=== PATIENT | female | born 1990 | race Caucasian/White ===

== ENCOUNTER 2017-06-28 10:35 | Emergency (ER) | payer OTHER ==
[~2017-06-28] VITALS: Ht 157.5 cm; Wt 65.0 kg
[~2017-06-28 10:35] MED LIST: OXYC1SOL5 PO; PREN0.01 PO
[2017-06-28 10:38] VITALS: BP 130/77; PULSE 82; RESP 14; TEMP 98.3; O2SAT 97
--- NOTE | 2017-06-28 11:26 | PD ---
HPI Chief Complaint: Pain: Acute or Chronic Time Seen by Provider: 11:01 Travel History International Travel<30 days: No Contact w/Intl Traveler<30days: No Traveled to known affect area: No History of Present Illness HPI 27-year-old female presents emergency Department with complaint of right calf pain since Saturday. Pain is worse with walking. Pain is decreased at rest. Says her calf is low bit more swollen than her other calf. Describes pain as a tightness. Denies history of DVT, PE. Denies fever, vomiting. Denies paresthesias, loss of sensation, decreased range of motion, decreased strength to the affected extremity. Denies chest pain, shortness of breath. Denies anticoagulant therapy. Symptoms are mild in severity. Has not taken any medication or tried any treatments to alleviate her symptoms. Has no other medical complaints. No known allergies. No other modifying factors or associated signs and symptoms. PFSH Past Medical History ?: Not LMP: 1013/17 Social History Alcohol Use: Yes (OCC) Tobacco Use: No Substance Use: No Allergies-Medications (Allergen,Severity, Reaction): Coded Allergies: No Known Allergies (Unverified , 07/04/16) Reported Meds & Prescriptions Reported Meds & Active Scripts Active Ibuprofen 800 Mg Tab 800 Mg PO Q6HR PRN Oxycodone/Acetaminophen 5-325 mg/5Ml (Oxycodone W/ Acetaminophen) 5 mg/325 mg Tab 2 Tab PO Q4H PRN Reported Vit ( Plus) (Prenat Multivit/[place]/Iron/Folic Ac) Tab 1 Tab PO DAILY Review of Systems Except as stated in HPI: all other systems reviewed are Neg Physical Exam Narrative GENERAL: Well-nourished, well-developed female patient, in no acute distress SKIN: Warm and dry. HEAD: Atraumatic. Normocephalic. EYES: Pupils equal and round. No scleral icterus. No injection or drainage. ENT: Mucosa pink and moist. Airway patent. NECK: Trachea midline. CARDIOVASCULAR: Regular rate. RESPIRATORY: No accessory muscle use. GASTROINTESTINAL: Flat. MUSCULOSKELETAL: Right lower extremity supple and non-tense with 2+ pedal pulse and sensory intact without erythema; right calf with minimal swelling compared to the left. Reproducible tenderness on palpation to the right posterior upper calf. No obvious deformities. No clubbing. No cyanosis. NEUROLOGICAL: Awake and alert. Oriented 3. No obvious cranial nerve deficits. Motor grossly within normal limits. Normal speech. PSYCHIATRIC: Appropriate mood and affect; insight and judgment normal. Data Data Last Documented VS Vital Signs Date Time Temp Pulse Resp B/P (MAP) Pulse Ox O2 Delivery O2 Flow Rate FiO2 06/28/17 10:38 98.3 82 14 130/77 (94) 97 Orders Orders Us Leg Venous Doppler (06/28/17 ) Ed Discharge Order (06/28/17 12:48) [facility] Medical Decision Making Medical Screen Exam Complete: Yes Emergency Medical Condition: Yes Medical Record Reviewed: Yes Differential Diagnosis DVT, superficial thrombosis, leg pain Narrative Course 27-year-old female with right calf pain since Saturday. Denies history of DVT/ PE. Denies anticoagulant therapy. Right lower extremity supple and non-tense with 2+ pedal pulse and sensory intact and without erythema. Minimal edema noted compared to the left calf. I have asked the patient pain medication and she declined. Right leg venous Doppler ultrasound ordered. 1239: Right leg US concludes: Negative for DVT. Elongated 2.8 cm cystic-like structure proximal medial right calf indeterminate significance. Could represent a small fluid collection or hematoma. Patient provided copy of ultrasound report. Ibuprofen prescribed for home. Discussed reasons to return to the emergency department. Instructed patient to follow up with primary care provider. Patient verbalizes understanding and agreement with treatment plan. Patient is medically cleared and stable for discharge. Discussed reasons to return to the emergency department. Patient agrees with treatment plan. The patients vital signs are stable and the patient is stable for outpatient follow- up and treatment. Patient discharged home, stable and in no acute distress. Diagnosis Primary Impression: Cyst of soft tissue Referrals: Primary Care Physician Patient Instructions: Cyst (ED), General Instructions Departure Forms: Tests/Procedures, Work Release Enter return to work date: Jun 28, 2017 Additional Instructions: Ibuprofen or Tylenol as stressed and as needed for pain and inflammation Warm compresses to affected area Elevate the extremity to reduce inflammation Follow-up with primary care provider Return to the emergency department immediately with worsening of symptoms, particularly as discussed Med/Other Pt SpecificInfo: Prescription(s) given Scripts Ibuprofen (Ibuprofen) 800 Mg Tab 800 MG PO Q6HR Y for PAIN, #20 TAB 0 Refills Prov: Alexa AcuñaP 06/28/17 Disposition: 01 DISCHARGE HOME Condition: Stable Alexa Acuña Jun 28, 2017 11:26
--- NOTE | 2017-06-28 12:33 | RADRPT ---
EXAM DATE/TIME: 06/28/2017 12:06 [place] COMPARISON: No previous studies available for comparison. INDICATIONS : Right leg/calf pain. MEDICAL HISTORY : Right leg pain. SURGICAL HISTORY : None. ENCOUNTER: Initial ACUITY: 4 - 6 days PAIN SCORE: 4/10 LOCATION: Right leg. TECHNIQUE: Venous ultrasound of the leg was performed from the inguinal ligament to the proximal calf. Real-shayy e, color Doppler and spectral tracing, compression and augmentation techniques were used. FINDINGS: There is normal compressibility of the deep venous system from the inguinal region to the proximal ca lf. No echogenic clot is seen in the lumen of the common femoral, femoral, popliteal, and posterior tibial veins. There is a normal response of the venous system to proximal and distal augmentation an d respiration. Iliac vein open patent. There is somewhat elongated cystic structure right proximal m edial calf just inferior to the measuring vertical height 2.8 cm could represent fluid collection or hematoma CONCLUSION: Negative for DVT. Elongated 2.8 cm cystic-like structure proximal medial right calf indeterminate significance. Could represent a small fluid collection or hematoma. Iván Green MD on June 28, 2017 at 12:30 Board Certified Radiologist. This report was verified electronically.
[2017-06-28] MEDS ORDERED: IBUP800T23 PO (12:50)
== END 2017-06-28 13:05 | disposition home or self-care (01) ==
LOC: NEPK 10:35
DX: M67.48 Ganglion, other site (principal); M79.661 Pain in right lower leg; Z79.899 Other long term (current) drug therapy
CPT/HCPCS: 93971